=== PATIENT | female | born 1995 | race Hispanic/Latino ===

== ENCOUNTER 2021-01-04 21:22 | Emergency (ER) | payer SELFPAY ==
[2021-01-04 22:02] LABS: Bacteria,Urine 2+ /HPF (Negative); Bilirubin,Urine NEG (Negative); Blood,Urine NEG (Negative); Color,Urine Yellow (Yellow); Mucus,Urine FEW /HPF; Protein,Urine <15 mg/dL mg/dL (Negative); Urobilinogen,Urine < 2.0 mg/dL (<2.0)
[2021-01-04 22:08] LABS: Amphetamine Screen,Urine Negative; Benzodiazepines Screen,Urine Negative; Cocaine Screen,Urine Negative; Methadone Screen,Urine Negative; Opiate Screen,Urine Negative
[2021-01-04 22:10] LABS: Basophils # (Auto) 0.1 K/mm3 (0.0-0.1); Basophils % (Auto) 1.3 % (0.0-1.8); Eosinophils # (Auto) 0.3 K/mm3 (0.0-0.4); Eosinophils % (Auto) 4.5 % (0.0-4.3); Hematocrit 38.8 % (30.3-42.9); Hemoglobin 13.1 gm/dl (10.1-14.3); Lymphocytes # (Auto) 1.8 K/mm3 (1.2-5.4); Lymphocytes % (Auto) 27.6 % (13.4-35.0); Mean Corpuscular HGB Conc 34 % (30-34); Mean Corpuscular Volume 96 fl (79-97); Monocytes # (Auto) 0.5 K/mm3 (0.0-0.8); Monocytes % (Auto) 8.5 % (0.0-7.3); Platelet Count 254 K/mm3 (140-440); Red Blood Count 4.06 M/mm3 (3.65-5.03)
[2021-01-04 22:27] LABS: Blood Urea Nitrogen 10 mg/dL (7-17); Calcium 8.6 mg/dL (8.4-10.2); Hemolysis Index 6
[2021-01-04 22:28] LABS: BUN/Creatinine Ratio 20
[2021-01-04 22:30] LABS: Cannabinoid Screen,Urine Positive
--- NOTE | 2021-01-04 22:40 | Emergency Department Report ---
<REBEKAH MORAN - Last Filed: 01/04/21 22:35> ED Psych HPI - General Chief Complaint: Psych Stated Complaint: AUDITORY HALLUCIATION/MH Time Seen by Provider: 01/04/21 21:48 Source: patient, EMS Mode of arrival: Ambulatory - History of Present Illness Initial Comments: Patient is a 25-year-old female who is presenting after being found outside of a local store looking confused. Patient admits that she is hearing voices but would not share what the voices are saying. She states she is not homicidal suicidal. Does appear to be responding to internal stimuli. Patient is refusing to answer any additional questions just states that she wants to sleep. - Related Data Previous Rx's Medication Instructions Recorded Last Taken Type ARIPiprazole [Abilify] 10 mg PO DAILY #30 tab 01/08/21 Unknown Rx Nicotine [Habitrol] 21 mg TD DAILY #30 patch 01/08/21 Unknown Rx traZODone [Desyrel] 50 mg PO QHS #30 tab 01/08/21 Unknown Rx Allergies Allergy/AdvReac Type Severity Reaction Status Date / Time No Known Allergies Allergy Unverified 01/04/21 21:41 ED Review of Systems Comment: All other systems reviewed and negative ED Past Medical Hx - Past Medical History Previous Medical History?: Yes Hx Psychiatric Treatment: Yes (Schizophrenia/Bipolar) - Surgical History Past Surgical History?: No - Social History Smoking Status: Current Every Day Smoker Substance Use Type: Marijuana - Medications Home Medications: Home Medications Medication Instructions Recorded Confirmed Last Taken Type ARIPiprazole [Abilify] 10 mg PO DAILY #30 tab 01/08/21 Unknown Rx Nicotine [Habitrol] 21 mg TD DAILY #30 patch 01/08/21 Unknown Rx traZODone [Desyrel] 50 mg PO QHS #30 tab 01/08/21 Unknown Rx ED Physical Exam - General Limitations: No Limitations General appearance: alert, in no apparent distress - Head Head exam: Present: atraumatic, normocephalic - Eye Eye exam: Present: normal appearance - ENT ENT exam: Present: mucous membranes moist - Neck Neck exam: Present: normal inspection - Respiratory Respiratory exam: Present: normal lung sounds bilaterally. Absent: respiratory distress, wheezes, rales, rhonchi - Cardiovascular Cardiovascular Exam: Present: regular rate, normal rhythm, normal heart sounds. Absent: systolic murmur, diastolic murmur, rubs, gallop - GI/Abdominal GI/Abdominal exam: Present: soft, normal bowel sounds. Absent: distended, tenderness, guarding, rebound - Extremities Exam Extremities exam: Present: normal inspection - Back Exam Back exam: Present: normal inspection - Neurological Exam Neurological exam: Present: alert, oriented X3 - Psychiatric Psychiatric exam: Present: normal affect, normal mood - Skin Skin exam: Present: warm, dry, intact, normal color. Absent: rash ED Course - Reevaluation(s) Reevaluation #1: 01/04/21 22:41 Patient is medically cleared will be seen by our psych assessment team. ED Medical Decision Making - Lab Data Result diagrams: 01/04/21 21:56 01/04/21 21:56 Lab Results 01/04/21 01/04/21 01/04/21 Range/Units 21:38 21:38 21:56 WBC 6.4 (4.5-11.0) K/mm3 RBC 4.06 (3.65-5.03) M/mm3 Hgb 13.1 (10.1-14.3) gm/dl Hct 38.8 (30.3-42.9) % MCV 96 (79-97) fl MCH 32 (28-32) pg MCHC 34 (30-34) % RDW 14.0 (13.2-15.2) % Plt Count 254 (140-440) K/mm3 Lymph % (Auto) 27.6 (13.4-35.0) % [place] % (Auto) 8.5 H (0.0-7.3) % Eos % (Auto) 4.5 H (0.0-4.3) % Baso % (Auto) 1.3 (0.0-1.8) % Lymph # (Auto) 1.8 (1.2-5.4) K/mm3 [place] # (Auto) 0.5 (0.0-0.8) K/mm3 Eos # (Auto) 0.3 (0.0-0.4) K/mm3 Baso # (Auto) 0.1 (0.0-0.1) K/mm3 Seg Neutrophils % 58.1 (40.0-70.0) % Seg Neutrophils # 3.7 (1.8-7.7) K/mm3 Sodium (137-145) mmol/L Potassium (3.6-5.0) mmol/L Chloride (98-107) mmol/L Carbon Dioxide (22-30) mmol/L Anion Gap mmol/L BUN (7-17) mg/dL Creatinine (0.6-1.2) mg/dL Estimated GFR ml/min BUN/Creatinine Ratio % Glucose (65-100) mg/dL Calcium (8.4-10.2) mg/dL Urine Color Yellow (Yellow) Urine Turbidity Slightly-cloudy (Clear) Urine pH 6.0 (5.0-7.0) Ur Specific [place] 1.016 (1.003-1.030) Urine Protein <15 mg/dl (Negative) mg/dL Urine Glucose (UA) Neg (Negative) mg/dL Urine Ketones Neg (Negative) mg/dL Urine Blood Neg (Negative) Urine Nitrite Neg (Negative) Urine Bilirubin Neg (Negative) Urine Urobilinogen < 2.0 (<2.0) mg/dL Ur Leukocyte Esterase Neg (Negative) Urine WBC (Auto) 4.0 (0.0-6.0) /HPF Urine RBC (Auto) 2.0 (0.0-6.0) /HPF U Epithel Cells (Auto) 16.0 H (0-13.0) /HPF Urine Bacteria (Auto) 2+ (Negative) /HPF Urine Mucus Few /HPF Salicylates (2.8-20.0) mg/dL Urine Opiates Screen Negative Urine Methadone Screen Negative Acetaminophen (10.0-30.0) ug/mL Ur Barbiturates Screen Negative Ur Phencyclidine Scrn Negative Ur Amphetamines Screen Negative U Benzodiazepines Scrn Negative Urine Cocaine Screen Negative U Marijuana (THC) Screen Positive Plasma/Serum Alcohol (0-0.07) % 01/04/21 01/04/21 01/04/21 Range/Units 21:56 21:56 21:56 WBC (4.5-11.0) K/mm3 RBC (3.65-5.03) M/mm3 Hgb (10.1-14.3) gm/dl Hct (30.3-42.9) % MCV (79-97) fl MCH (28-32) pg MCHC (30-34) % RDW (13.2-15.2) % Plt Count (140-440) K/mm3 Lymph % (Auto) (13.4-35.0) % [place] % (Auto) (0.0-7.3) % Eos % (Auto) (0.0-4.3) % Baso % (Auto) (0.0-1.8) % Lymph # (Auto) (1.2-5.4) K/mm3 [place] # (Auto) (0.0-0.8) K/mm3 Eos # (Auto) (0.0-0.4) K/mm3 Baso # (Auto) (0.0-0.1) K/mm3 Seg Neutrophils % (40.0-70.0) % Seg Neutrophils # (1.8-7.7) K/mm3 Sodium 141 (137-145) mmol/L Potassium 3.8 (3.6-5.0) mmol/L Chloride 104.1 (98-107) mmol/L Carbon Dioxide 28 (22-30) mmol/L Anion Gap 13 mmol/L BUN 10 (7-17) mg/dL Creatinine 0.5 L (0.6-1.2) mg/dL Estimated GFR > 60 ml/min BUN/Creatinine Ratio 20 % Glucose 96 (65-100) mg/dL Calcium 8.6 (8.4-10.2) mg/dL Urine Color (Yellow) Urine Turbidity (Clear) Urine pH (5.0-7.0) Ur Specific [place] (1.003-1.030) Urine Protein (Negative) mg/dL Urine Glucose (UA) (Negative) mg/dL Urine Ketones (Negative) mg/dL Urine Blood (Negative) Urine Nitrite (Negative) Urine Bilirubin (Negative) Urine Urobilinogen (<2.0) mg/dL Ur Leukocyte Esterase (Negative) Urine WBC (Auto) (0.0-6.0) /HPF Urine RBC (Auto) (0.0-6.0) /HPF U Epithel Cells (Auto) (0-13.0) /HPF Urine Bacteria (Auto) (Negative) /HPF Urine Mucus /HPF Salicylates < 0.3 L (2.8-20.0) mg/dL Urine Opiates Screen Urine Methadone Screen Acetaminophen 5.0 L (10.0-30.0) ug/mL Ur Barbiturates Screen Ur Phencyclidine Scrn Ur Amphetamines Screen U Benzodiazepines Scrn Urine Cocaine Screen U Marijuana (THC) Screen Plasma/Serum Alcohol (0-0.07) % 01/04/21 Range/Units 21:56 WBC (4.5-11.0) K/mm3 RBC (3.65-5.03) M/mm3 Hgb (10.1-14.3) gm/dl Hct (30.3-42.9) % MCV (79-97) fl MCH (28-32) pg MCHC (30-34) % RDW (13.2-15.2) % Plt Count (140-440) K/mm3 Lymph % (Auto) (13.4-35.0) % [place] % (Auto) (0.0-7.3) % Eos % (Auto) (0.0-4.3) % Baso % (Auto) (0.0-1.8) % Lymph # (Auto) (1.2-5.4) K/mm3 [place] # (Auto) (0.0-0.8) K/mm3 Eos # (Auto) (0.0-0.4) K/mm3 Baso # (Auto) (0.0-0.1) K/mm3 Seg Neutrophils % (40.0-70.0) % Seg Neutrophils # (1.8-7.7) K/mm3 Sodium (137-145) mmol/L Potassium (3.6-5.0) mmol/L Chloride (98-107) mmol/L Carbon Dioxide (22-30) mmol/L Anion Gap mmol/L BUN (7-17) mg/dL Creatinine (0.6-1.2) mg/dL Estimated GFR ml/min BUN/Creatinine Ratio % Glucose (65-100) mg/dL Calcium (8.4-10.2) mg/dL Urine Color (Yellow) Urine Turbidity (Clear) Urine pH (5.0-7.0) Ur Specific [place] (1.003-1.030) Urine Protein (Negative) mg/dL Urine Glucose (UA) (Negative) mg/dL Urine Ketones (Negative) mg/dL Urine Blood (Negative) Urine Nitrite (Negative) Urine Bilirubin (Negative) Urine Urobilinogen (<2.0) mg/dL Ur Leukocyte Esterase (Negative) Urine WBC (Auto) (0.0-6.0) /HPF Urine RBC (Auto) (0.0-6.0) /HPF U Epithel Cells (Auto) (0-13.0) /HPF Urine Bacteria (Auto) (Negative) /HPF Urine Mucus /HPF Salicylates (2.8-20.0) mg/dL Urine Opiates Screen Urine Methadone Screen Acetaminophen (10.0-30.0) ug/mL Ur Barbiturates Screen Ur Phencyclidine Scrn Ur Amphetamines Screen U Benzodiazepines Scrn Urine Cocaine Screen U Marijuana (THC) Screen Plasma/Serum Alcohol < 0.01 (0-0.07) % ED Disposition Clinical Impression: Auditory hallucinations Disposition: DC- TO HOME OR SELFCARE Condition: Stable Additional Instructions: Professional and Agency Contacts To help [facility](07/04) [place] Crisis Line: Suicide Prevention Line: Crisis Text Line: Text START to 445790 Emergency: 911 Outpatient [facility] Behavioral Health Resources: [facility]: [facility] [address], [place] [address] [facility] [address] [place] [address] [facility] [address] [place] [address] Friday thru Friday - 8am - 5pm [facility] Address: [address] [place] [address] [facility] Address: [address] [place] [address] Friday thru Friday- 7am-2pm [facility] Address: [address] [place] [address] Friday thru Friday: 8:30AM-5PM Prescriptions: traZODone [Desyrel] 50 mg PO QHS #30 tab ARIPiprazole [Abilify] 10 mg PO DAILY #30 tab Nicotine [Habitrol] 21 mg TD DAILY #30 patch Referrals: PRIMARY CARE, [Primary Care Provider] - 3-5 Days [facility] [Outside] - 3-5 Days <SLICK MUSTAFA - Last Filed: 01/08/21 13:58> ED Review of Systems ROS: Stated complaint: AUDITORY HALLUCIATION/MH Other details as noted in HPI ED Course Vital Signs 01/04/21 01/04/21 01/04/21 22:30 22:42 22:43 Temperature 97.8 F 97.9 F Pulse Rate 80 82 Respiratory 18 17 16 Rate Blood Pressure 89/45 Blood Pressure 89/45 [Right] O2 Sat by Pulse 99 98 98 Oximetry 01/05/21 01/05/21 01/05/21 08:30 11:21 18:14 Temperature 98.2 F 98 F 98 F Pulse Rate 65 75 69 Respiratory 18 18 20 Rate Blood Pressure Blood Pressure 111/50 98/63 107/58 [Right] O2 Sat by Pulse 100 98 100 Oximetry 01/05/21 01/06/21 01/06/21 19:40 02:00 08:47 Temperature 98.6 F 97.8 F 97.9 F Pulse Rate 59 L 65 76 Respiratory 18 63 H 18 Rate Blood Pressure Blood Pressure 98/62 98/65 105/68 [Right] O2 Sat by Pulse 100 100 98 Oximetry 01/06/21 01/06/21 01/07/21 20:47 22:03 02:30 Temperature 98.3 F 98.4 F Pulse Rate 69 73 Respiratory 18 16 20 Rate Blood Pressure Blood Pressure 97/61 95/57 [Right] O2 Sat by Pulse 98 100 98 Oximetry 01/07/21 01/07/21 01/07/21 08:39 20:30 21:01 Temperature 98.4 F 97.7 F Pulse Rate 70 78 Respiratory 18 18 18 Rate Blood Pressure Blood Pressure 108/68 103/68 [Right] O2 Sat by Pulse 100 100 99 Oximetry 01/08/21 01/08/21 02:00 08:14 Temperature 98.2 F 97.0 F L Pulse Rate 60 82 Respiratory 16 18 Rate Blood Pressure Blood Pressure 95/55 106/72 [Right] O2 Sat by Pulse 98 97 Oximetry ED Medical Decision Making - Lab Data Result diagrams: 01/04/21 21:56 01/04/21 21:56 Critical care attestation.: If time is entered above; I have spent that time in minutes in the direct care of this critically ill patient, excluding procedure time. ED Disposition Is pt being admited?: No Does the pt Need Aspirin: No
--- NOTE | 2021-01-05 09:56 | Consultation ---
History of Present Illness - Reason for Consult Consult date: 01/05/21 Reason for consult: psychosis - History of Present Psychiatric Illness Per ER Note: Patient is a 25-year-old female who is presenting after being found outside of a local store looking confused. Patient admits that she is hearing voices but would not share what the voices are saying. She states she is not homicidal suicidal. Does appear to be responding to internal stimu li. Patient is refusing to answer any additional questions just states that she wants to sleep. The patient was seen today, she is lying down asleep. She easily arouses. The patient is reluctant to answer questions at time. She is guarded. She makes poor eye contact. She appears to be responding to internal stimuli. She says she was hearing a lot of voices in her head. The patient says she has a history of schizophrenia and been off her meds for a few days. When asked why was she off her meds she replied "I don't know. I couldn't afford them." She also states she doesn't remember what her meds are. When asking the patient how she felt, she replied "I don't know." She then says "I need a new place to stay." When asked why did she need a new place to live, she replies "I keep hearing dogs barking." The patient denies SI/HI. She also denies any illicit drug use. She is positive for THC. PAST PSYCHIATRIC HISTORY: Diagnoses: Schizophrenia Suicide attempts or Self-harm behavior: Yes Prior psychiatric hospitalizations: Yes Substance Abuse history: Denies Previous psychiatric medications tried: Denies Outpatient treatment: Denies PAST MEDICAL HISTORY: None reported Family Psychiatric History: None reported or documented SOCIAL HISTORY Marital Status: Single Living Arrangements: with mother Employment Status: Unemployed Access to guns/weapons: Denies Education: high school History of Abuse: Denies Legal History: Denies REVIEW OF SYSTEMS Constitutional: Negative for weight loss ENT: Negative for stridor Respiratory: Negative for cough or hemoptysis All other systems reviewed and are negative MENTAL STATUS EXAMINATION General Appearance and Behavior: Age appropriate, good hygiene, not wearing appropriate clothes, poor eye contact, suspicious Cooperation: Participating, uncooperative at times Psychomotor Behavior: Psychomotor normal Mood: "I don't know." Affect and affective range: Congruent with stated mood Thought Process: illogical, responding to internal stimuli Speech: Normal tone and pace, nonsensical Thought Content Suicidal Ideation: Denies Homicidal Ideation: Denies Hallucinations: Auditory Delusions: None elicited Impulse Control: Limited Insight and Judgment: Impaired insight and judgment Memory: Limited Attention: Divided attention impaired Orientation: A/o x 3 Assessment and Plan (1) Schizophrenia Current Visit: Yes Status: Acute Treatment Plan 1013 Start Abilify 5mg po daily Start Trazodone 50mg po qhs Sitter: Defer to primary Medical: per primary Disposition: Recommend acute psychiatric inpatient treatment Will follow. Thank you for this consult Case staffed with Dr. Aceves Medications and Allergies Allergies Allergy/AdvReac Type Severity Reaction Status Date / Time No Known Allergies Allergy Unverified 01/04/21 21:41 Home Medications Medication Instructions Recorded Confirmed Last Taken Type No Known Home Medications [No 01/04/21 01/04/21 Unknown History Reported Home Medications] Mental Status Exam - Vital signs Last Vital Signs Temp 97.9 F 01/04/21 22:43 Pulse 82 01/04/21 22:43 Resp 16 01/04/21 22:43 BP 89/45 01/04/21 22:43 Pulse Ox 98 01/04/21 22:43 Results Result Diagrams: 01/04/21 21:56 01/04/21 21:56 Abnormal lab results 01/04/21 01/04/21 01/04/21 Range/Units 21:38 21:56 21:56 [place] % (Auto) 8.5 H (0.0-7.3) % Eos % (Auto) 4.5 H (0.0-4.3) % Creatinine 0.5 L (0.6-1.2) mg/dL U Epithel Cells (Auto) 16.0 H (0-13.0) /HPF Salicylates (2.8-20.0) mg/dL Acetaminophen (10.0-30.0) ug/mL 01/04/21 01/04/21 Range/Units 21:56 21:56 [place] % (Auto) (0.0-7.3) % Eos % (Auto) (0.0-4.3) % Creatinine (0.6-1.2) mg/dL U Epithel Cells (Auto) (0-13.0) /HPF Salicylates < 0.3 L (2.8-20.0) mg/dL Acetaminophen 5.0 L (10.0-30.0) ug/mL All other labs normal.
[2021-01-05] MEDS: ARIPiprazole 5 MG TAB PO SCH (10:36)
--- NOTE | 2021-01-05 10:53 | Event Note ---
S: " I want to go home." Patient denies any physical complaints O: Calm, cooperative, stable vital signs A: Schizophrenia, noncompliance to medication, marijuana use P: Mental health team recommended 1013 form to be completed, inpatient treatment recommended per mental health assessment, I have ordered ED hold, and completed 1013 form, patient is medically clear for psychiatric care. CBC chemistry urinalysis all within normal limits, test is negative, UDS positive for marijuana
[2021-01-05] MEDS: traZODone 50 MG TAB PO SCH (21:32)
--- NOTE | 2021-01-06 10:09 | Progress Note ---
Subjective - Reason for Consult Consult date: 01/06/21 Reason for consult: psychosis - Chief Complaint Chief complaint: The patient was seen today, she is responding to internal stimuli. When asked about hallucinations she smiles and darts her eyes to the right. She would not respond to SI/HI. REVIEW OF SYSTEMS Constitutional: Negative for weight loss ENT: Negative for stridor Respiratory: Negative for cough or hemoptysis All other systems reviewed and are negative MENTAL STATUS EXAMINATION General Appearance and Behavior: Age appropriate, good hygiene, not wearing appropriate clothes, poor eye contact, suspicious Cooperation: Participating, uncooperative at times Psychomotor Behavior: Psychomotor normal Mood: "I don't know." Affect and affective range: Congruent with stated mood Thought Process: illogical, responding to internal stimuli Speech: Normal tone and pace, nonsensical Thought Content Suicidal Ideation: Denies Homicidal Ideation: Denies Hallucinations: Auditory Delusions: None elicited Impulse Control: Limited Insight and Judgment: Impaired insight and judgment Memory: Limited Attention: Divided attention impaired Orientation: A/o x 3 Assessment and Plan (1) Schizophrenia Current Visit: Yes Status: Acute Treatment Plan 1013 Increase Abilify 10mg po daily Nicotine 21mg daily Sitter: Defer to primary Medical: per primary Disposition: Recommend acute psychiatric inpatient treatment Will follow. Thank you for this consult Case staffed with Dr. Aceves Mental Status Exam - Vital signs Last Vital Signs Temp 97.9 F 01/06/21 08:47 Pulse 76 01/06/21 08:47 Resp 18 01/06/21 08:47 BP 105/68 01/06/21 08:47 Pulse Ox 98 01/06/21 08:47
--- NOTE | 2021-01-06 10:19 | Event Note ---
Date: 01/06/21 Vital Signs - 24 hr 01/05/21 01/05/21 01/05/21 11:21 18:14 19:40 Temperature 98 F 98 F 98.6 F Pulse Rate 75 69 59 L Respiratory 18 20 18 Rate Blood Pressure 98/63 107/58 98/62 [Right] O2 Sat by Pulse 98 100 100 Oximetry 01/06/21 01/06/21 02:00 08:47 Temperature 97.8 F 97.9 F Pulse Rate 65 76 Respiratory 63 H 18 Rate Blood Pressure 98/65 105/68 [Right] O2 Sat by Pulse 100 98 Oximetry This patient was seen ambulatory in the psychiatric area of the hospital. She is calm, appropriate at this time. She is asking for food and a nicotine patch. The nicotine patch has been ordered by the psychiatric nurse practitioner. The patient has been started on psychiatric medications. All other needs have been addressed. Labs are mostly unremarkable except for a urine drug screen positive for marijuana. The vital signs, listed above, appear reassuring inclu ding being afebrile. She was initially here for acute psychosis. She has been seen by the psychiatric team today and they recommend continuing the 1013 and ED hold for inpatient stabilization. The patient does not have any other past medical history and does not have any other medications that need to be restarted for medication reconciliation.
[2021-01-06] MEDS: ARIPiprazole 5 MG TAB PO SCH ×2 (10:24→11:40)
[2021-01-06] MEDS: NICOTINE 21 MG/24 HR PATCH TD SCH (11:40)
[2021-01-06] MEDS: traZODone 50 MG TAB PO SCH (23:06)
[2021-01-07] MEDS: NICOTINE 21 MG/24 HR PATCH TD SCH (10:25)
[2021-01-07] MEDS: ARIPiprazole 10 MG TAB PO SCH (10:25)
--- NOTE | 2021-01-07 13:31 | Event Note ---
S: " I want Xanax." Patient denies any physical complaints O: Calm, cooperative, stable vital signs A: Schizophrenia, noncompliance to medication, marijuana use, Covid PCR test positive, P: Mental health team recommended 1013 form to be completed, inpatient treatment recommended per mental health assessment, I have ordered ED hold, and completed 1013 form, patient is medically clear for psychiatric care. CBC chemistry urinalysis all within normal limits, test is negative, UDS positive for marijuana, no current Covid symptoms, vital signs are normal.
[2021-01-07] MEDS: traZODone 50 MG TAB PO SCH (22:04)
[2021-01-08 08:25] VITALS: BP 106/72
--- NOTE | 2021-01-08 10:35 | Emergency Department Report ---
Blank Doc - Documentation Documentation: No new events No new complaints Awaiting placement
--- NOTE | 2021-01-08 10:42 | Progress Note ---
Subjective - Reason for Consult Consult date: 01/08/21 Reason for consult: psychosis - Chief Complaint Chief complaint: Per Nursing staff: The patient has been calm and cooperative. She has not verbalized any thoughts of SI/HI or A/V hallucinations. The patient was seen today, she is sleeping, but easily arouses. She is calm and cooperative. The patient asks me if I can come back while she sleeps a little longer. I then tell the patient I needed to speak with her now and she could sleep when we're done. She raises up and talks with me. She asks me what time it is. She describes her mood as "tired, but okay." The patient denies hallucinations of any kind. When asked was she hearing them at all today, she says "no, not at all." She denies SI/HI REVIEW OF SYSTEMS Constitutional: Negative for weight loss ENT: Negative for stridor Respiratory: Negative for cough or hemoptysis All other systems reviewed and are negative MENTAL STATUS EXAMINATION General Appearance and Behavior: Age appropriate, good hygiene, not wearing appropriate clothes, fair eye contact, calm and cooperative Cooperation: Participating, cooperative at times Psychomotor Behavior: Psychomotor normal Mood: "tired, but okay" Affect and affective range: Congruent with stated mood Thought Process: goal directed Speech: Normal tone and pace Thought Content Suicidal Ideation: Denies Homicidal Ideation: Denies Hallucinations: Denies Delusions: None elicited Impulse Control: Limited Insight and Judgment: Limited insight and judgment Memory: Limited Attention: Divided attention impaired Orientation: A/o x 3 Assessment and Plan (1) Schizophrenia Current Visit: Yes Status: Acute Treatment Plan d/c 1013 Abilify 10mg po daily Nicotine 21mg daily Trazodone 50mg po qhs Sitter: Defer to primary Medical: per primary Disposition: Do not recommend acute psychiatric inpatient treatment. The patient verbalizes understanding that she would seek immediate attention if SI/HI or any fear of endangerment return, by calling 911/ER or crisis hotline. She is to follow up with outpatient psych in 7 to 14 days upon discharge The freight inspector to further discuss safety plan Will sign off. Thank you for this consult Case staffed with Dr. Aceves Mental Status Exam - Vital signs Last Vital Signs Temp 97.0 F L 01/08/21 08:14 Pulse 82 04/26/21 08:14 Resp 18 01/08/21 08:14 BP 106/72 01/08/21 08:14 Pulse Ox 97 01/08/21 08:14
[2021-01-08] MEDS: ARIPiprazole 10 MG TAB PO SCH (10:49)
[2021-01-08] MEDS: NICOTINE 21 MG/24 HR PATCH TD SCH (10:49)
== END 2021-01-08 14:45 | disposition home or self-care (01) ==
LOC: ED 21:22
DX: F25.0 Schizoaffective disorder, bipolar type (principal); F17.200 Nicotine dependence, unspecified, uncomplicated; F12.10 Cannabis abuse, uncomplicated; Z79.899 Other long term (current) drug therapy; Z20.822 Contact with and (suspected) exposure to COVID-19
CPT/HCPCS: 36415; 80048; 80307; 81001; 84703; 85025; 99284; U0003; 80320; G0480